=== PATIENT | female | born 1990 | race Two or more races ===

== ENCOUNTER 2016-07-11 09:06 | Emergency (ER) | payer MEDICAID ==
[~2016-07-11] VITALS: Ht 63.5 cm; Wt 61.7 kg
[2016-07-11 09:24] VITALS: BP 120/67
[2016-07-11] MEDS ORDERED: cefTRIAXone SOD 1,000 MG VL IM ONE (09:45)
== END 2016-07-11 10:06 | disposition home or self-care (01) ==
LOC: ER 09:06
DX: K04.7 Periapical abscess without sinus (principal); J02.9 Acute pharyngitis, unspecified
CPT/HCPCS: 96372; 99283; J0696